=== PATIENT | male | born 1965 | race Caucasian/White ===

== ENCOUNTER 2018-04-12 05:27 | Day surgery (SDC) | payer BC ==
[2018-04-11 15:32] LABS: BASOPHILS # (AUTO) 0.1 X10'3 (0-0.2); BASOPHILS % (AUTO) 1.2 % (0-1); EOSINOPHILS % (AUTO) 0.8 % (0-6); LYMPHOCYTES # (AUTO) 1.7 X10'3 (1.1-4.8); LYMPHOCYTES % (AUTO) 29.2 % (21-51); MEAN CORPUSCULAR HEMOGLOBIN 30.4 PG (27.0-31.0); MEAN CORPUSCULAR VOLUME 89.2 FL (78-98); MEAN PLATELET VOLUME 7.8 FL (7.4-10.4); MONOCYTES # (AUTO) 0.4 X10'3 (0-0.9); MONOCYTES % (AUTO) 6.8 % (2-12); NEUTROPHILS # (AUTO) 3.6 X10'3 (1.8-7.7); PRE OP HEMATOCRIT 47.8 % (42.0-52.0); PRE OP HEMOGLOBIN 16.3 g/dL (14.0-17.9); PRE OP PLATELET COUNT 259 X10'3 (140-440); RED BLOOD COUNT 5.36 X10'6 (4.70-6.10); RED CELL DISTRIBUTION WIDTH 12.9 % (11.5-14.5)
[2018-04-11 15:48] LABS: ALBUMIN 4.2 G/DL (3.4-5.0); ALBUMIN/GLOBULIN RATIO 1.2 (1.1-1.5); ALKALINE PHOSPHATASE 78 IU/L (46-116); BLOOD UREA NITROGEN 16 MG/DL (7-18); BUN/CREATININE RATIO 15.8 (5.4-32.0); CALCIUM 9.2 MG/DL (8.5-10.1); CHLORIDE 102 MMOL/L (99-107); CREATININE 1.01 MG/DL (0.60-1.10); PRE OP ALT 35 U/L (30-65); PRE OP ANION GAP 8 (8-16); PRE OP AST 13 U/L (10-37); PRE OP BILIRUB, TOTAL 0.4 MG/DL (0.0-1.0); PRE OP GLUCOSE 117 MG/DL (70-104); PRE OP SODIUM 140 MMOL/L (135-145); TOTAL CARBON DIOXIDE 29.9 MMOL/L (24-32); TOTAL PROTEIN 7.8 G/DL (6.4-8.2); eGFR 77 ML/MIN
[~2018-04-12] VITALS: Ht 180.3 cm; Wt 91.5 kg
[~2018-04-12 05:27] MED LIST: NO HOME MEDS; ringers solution, lacted 1,000 ML IV SCH
[2018-04-12 05:30] VITALS: BP 139/91
[2018-04-12] MEDS ORDERED: cefazolin/dext.iso 2gm/100 ML IV ONE (05:30)
[2018-04-12] MEDS ORDERED: famotidine 20mg tablet PO ONE (05:30)
[2018-04-12] MEDS ORDERED: LIDOcaine 1% (10mg/ml) 2ml vial ONE (05:40)
[2018-04-12] MEDS ORDERED: BUPIVAcaine/PF 2.5mg/ml (0.25%) 10ml vial ONE (06:39)
[2018-04-12] MEDS ORDERED: LIDOcaine 0.5% (5mg/ml) 50ml vial ONE (07:26)
[2018-04-12] MEDS ORDERED: MIDAZolam 5mg/5ml vial ONE ×2 (07:30→07:55)
[2018-04-12] MEDS ORDERED: fentaNYL/PF 50MCG/1 ML 2ML syringe ONE (07:30)
[2018-04-12] MEDS ORDERED: LIDOcaine 2% (20mg/ml) 5ml vial ONE (07:32)
[2018-04-12] MEDS ORDERED: propofol inj 20 ML IV ONE (07:32)
[2018-04-12] MEDS ORDERED: ringers solution, lacted 1,000 ML IV SCH (07:37)
[2018-04-12] MEDS ORDERED: morphine 4 MG/ML inj SYRINge IV PRN ×2 (07:40)
[2018-04-12] MEDS ORDERED: hydrALAZINE 20mg/ml inj. IV PRN (07:40)
[2018-04-12] MEDS ORDERED: ondansetron/PF 4mg/2ml inj IV PRN (07:40)
[2018-04-12] MEDS ORDERED: fentaNYL/PF 50MCG/1 ML 2ML syringe IV PRN ×2 (07:40)
[2018-04-12] MEDS ORDERED: labetalol 20mg/4ml (5mg/ml) syringe IV PRN (07:40)
[2018-04-12 09:03] VITALS: BP 164/79
[2018-04-12 09:13] VITALS: BP 149/93
[2018-04-12 09:23] VITALS: BP 139/62
[2018-04-12 09:33] VITALS: BP 134/70
== END 2018-04-12 09:43 | disposition home or self-care (01) ==
LOC: PAS 05:27 → EDSEX 08:15 → PAS 09:43
PROVIDERS: ATTEND Orthopaedic Surgery Hand Surgery
DX: S66.012A Strain of long flexor muscle, fascia and tendon of left thumb at wrist and hand level, initial encounter (principal); Z72.89 Other problems related to lifestyle; Z79.891 Long term (current) use of opiate analgesic; Z87.891 Personal history of nicotine dependence; Z88.5 Allergy status to narcotic agent; Z86.14 Personal history of Methicillin resistant Staphylococcus aureus infection; Z98.890 Other specified postprocedural states; X58.XXXA Exposure to other specified factors, initial encounter; Y93.89 Activity, other specified; Y92.89 Other specified places as the place of occurrence of the external cause; Y99.8 Other external cause status
CPT/HCPCS: 26356; 36415; 80053; 85025; 93005; A6222; A6449; J0690; J2001; J2250; J2704; J3010; J3490; J7120; A7000